=== PATIENT | female | born 1995 | race Caucasian/White ===

== ENCOUNTER 2017-11-26 13:27 | Observation (INO) ==
--- NOTE | 2017-11-26 14:21 | Emergency Department Note ---
Disposition Clinical Impression: Dyspnea on exertion, Pulmonary embolism Disposition: Still a Patient Referrals: Jayla Recio CNP [Primary Care Provider] - Jayla Morocho MD [Family Provider] - Forms: ED Satisfaction Letter Time of Disposition: 19:32 General Adult HPI - General Chief complaint: ED Extremity Problem,Nontraumatic Stated complaint: "Swollen all over" Time Seen by Provider: 11/26/17 13:52 Source: patient, family Limitations: no limitations - History of Present Illness HPI Narrative: This is a 22-year-old female with a recent diagnosis of pulmonary emboli and having been seen at both [facility] in [place] and also at [facility] in [place]. She reports worsening exercise tolerance over the course of the last 7-10 days. She is on rivaroxaban. She reports significant desaturation with minimal exertion. Pain Scale: 4 - Related Data Allergies Allergy/AdvReac Type Severity Reaction Status Date / Time No Known Allergies Allergy Verified 11/26/17 14:56 All systems ED: reviewed and negative except as stated. Cardiovascular: Reports: dyspnea on exertion, other (Very poor exercise tolerance) Past Medical History - Past Medical History Medical history: Reports: pulmonary embolus Psychiatric history: Reports: anxiety, depression - Social History Smoking Status: Never smoker Alcohol use: Reports: rarely Drug use: Reports: none Physical Exam - General Limitations: no limitations General appearance: alert, in no apparent distress - Head Head exam: atraumatic, normocephalic, normal inspection - Eye Eye exam: Present: normal appearance, PERRL, EOMI - Chest Chest inspection: Present: normal inspection, symmetric chest wall rise - Respiratory Respiratory exam: Present: normal lung sounds bilaterally - Cardiovascular Cardiovascular exam: Present: normal rhythm, tachycardia, normal heart sounds - Abdominal Exam Abdominal exam: Present: soft, Non-Tender. Absent: tenderness, distention, guarding, rebound, rigidity - Extremities Exam Extremities exam: Present: normal inspection, full ROM, pedal edema (There is trace bilateral pedal edema). Absent: tenderness - Neurological Exam Neurological exam: Present: alert, oriented X3 - Psychiatric Psychiatric exam: Present: normal affect, normal mood - Skin Skin exam: Present: warm, dry, intact, normal color Course Vital Signs Temperature 98.6 F 11/26/17 13:35 Pulse Rate 121 11/26/17 13:35 Respiratory Rate 20 11/26/17 13:35 Blood Pressure 117/74 11/26/17 13:35 O2 Sat by Pulse Oximetry 97 11/26/17 13:35 Temperature 98.6 F 11/26/17 13:47 Pulse Rate 108 11/26/17 17:12 Respiratory Rate 18 11/26/17 17:12 Blood Pressure 115/71 11/26/17 17:12 O2 Sat by Pulse Oximetry 100 11/26/17 17:12 Oxygen Delivery Oxygen Delivery Room Air Medical Decision Making - MDM Narrative Medical decision making narrative: This is a 22-year-old female with known pulmonary emboli significantly worsening exercise tolerance. I discussed her case with interventional cardiology here, and was told that they do not do catheter directed thrombolysis. A repeat CT pulmonary angiogram was ordered, and the units city secretary arranged for transmission of the previous CT angiogram from 11/06/2017 from [facility] [place]. This will allow the radiologist to make a direct comparison between CT angiograms. The patient was signed out to Dr. Joyce at 7:15 PM. I had already discussed with the patient and her family the possibility of transfer to a hospital that could perform a right heart catheterization and catheter directed thrombolysis. Although she has been at [facility] before, she reports a very positive experience at [facility] in [facility] and would prefer to be transferred there if possible and if needed. - Lab Data Lab results narrative: CBC shows anemia 10.3 and 31.1 with thrombocytosis of 519 BMP was unremarkable Troponin was low TSH was normal at 1.096 Result diagrams: 11/26/17 14:08 11/26/17 14:08 Lab Results 11/26/17 11/26/17 Range/Units 14:08 14:08 WBC 10.8 (4.3-11.1) K/mcL RBC 3.60 L (3.82-4.97) M/mcL Hgb 10.3 L (11.5-15.4) g/dL Hct 31.1 L (35.3-44.9) % MCV 86.4 (83.0-100.0) fL MCH 28.6 (28.0-33.3) pg MCHC 33.1 (31.6-35.5) g/dL RDW 12.8 (11.5-14.5) % Plt Count 519 H (140-400) K/mcL MPV 8.8 L (9.4-12.4) fL Immature Gran % 1.1 (0-4) % Seg Neutrophils % 69.3 % Lymphocytes % 23.0 % Monocytes % 4.7 % Eosinophils % 1.5 % Basophils % 0.4 % Neutrophils # 7.5 (1.6-8.9) K/mcL Lymphocytes # 2.5 (0.6-4.6) K/mcL Monocytes # 0.5 (0.0-1.3) K/mcL Eosinophils # 0.2 (0.0-0.6) K/mcL Basophils # 0.0 (0.0-0.2) K/mcL Platelet Estimate Normal (Normal) Anisocytosis 1+ A (Not Present) Sodium 137 (136-145) mEq/L Potassium 3.6 (3.5-5.1) mEq/L Chloride 101 (98-107) mEq/L Carbon Dioxide 29 (23-29) mEq/L BUN 10 (6-20) mg/dL Creatinine 0.61 (0.60-1.20) mg/dL Est GFR ( Amer) > 60 (> 60) Est GFR (Non-Af Amer) > 60 (> 60) BUN/Creatinine Ratio 16 (6-26) Glucose 115 H (70-105) mg/dL Calculated Osmolality 284 (280-300) Calcium 9.2 (8.6-10.3) mg/dL Troponin I < 0.03 (< 0.04) ng/mL TSH 1.096 (0.340-5.600) mcIU/mL - Radiology Data Radiology results reviewed: Yes I reviewed the patient's radiology results. Chest x-ray showed no acute process - EKG Data EKG #1 EKG attestation: Yes I reviewed and interpreted this EKG. EKG results narrative: ECG shows sinus tachycardia, 122 bpm, normal intervals, normal exam, normal ST and T waves
[2017-11-26 14:27] LABS: Basophils % 0.4 %; Eosinophils # 0.2 K/mcL (0.0-0.6); Eosinophils % 1.5 %; Hematocrit 31.1 % (35.3-44.9); Hemoglobin 10.3 g/dL (11.5-15.4); Immature Granulocytes % 1.1 % (0-4); Lymphocytes # 2.5 K/mcL (0.6-4.6); Mean Corpuscular HGB Conc 33.1 g/dL (31.6-35.5); Mean Corpuscular Hemoglobin 28.6 pg (28.0-33.3); Mean Corpuscular Volume 86.4 fL (83.0-100.0); Mean Platelet Volume 8.8 fL (9.4-12.4); Monocytes # 0.5 K/mcL (0.0-1.3); Monocytes % 4.7 %; Neutrophils # 7.5 K/mcL (1.6-8.9); Platelet Count 519 K/mcL (140-400); Red Cell Distribution Width 12.8 % (11.5-14.5); Segmented Neutrophils % 69.3 %
[2017-11-26 14:45] LABS: Troponin I < 0.03 ng/mL (< 0.04)
[2017-11-26 14:57] LABS: BUN/Creatinine Ratio 16 (6-26); Blood Urea Nitrogen 10 mg/dL (6-20); Calcium 9.2 mg/dL (8.6-10.3); Carbon Dioxide 29 mEq/L (23-29); Chloride 101 mEq/L (98-107); Glucose 115 mg/dL (70-105); Osmolality,Calculated 284 (280-300); Potassium 3.6 mEq/L (3.5-5.1); Sodium 137 mEq/L (136-145); eGFR For Non-African Americans > 60 (> 60)
[2017-11-26 14:58] LABS: Thyroid Stimulating Hormone 1.096 mcIU/mL (0.340-5.600)
[2017-11-26 15:33] LABS: Anisocytosis 1+ (Not Present); Platelet Estimate Normal (Normal)
[2017-11-26] MEDS ORDERED: Isovue-370 500 ML INFUS..BTL IV ONE (16:05)
[2017-11-26] MEDS ORDERED: *HR* FentaNYL (PF) 100 MCG/2 ML VIAL IVP ONE (17:12)
[2017-11-26] MEDS ORDERED: *HR* OxyCODONE/APAP 5/325 TABLET PO STA (20:28)
[2017-11-26] MEDS ORDERED: 0.9 % Sodium Chloride 1,000 ML IVC ONE ×2 (20:29→21:59)
[2017-11-26 20:55] LABS: Bilirubin,Urine Negative (Negative); Blood,Urine Negative (Negative); Clarity,Urine Cloudy (Clear); Color,Urine Yellow (Yellow); Glucose,Urine (UA) Normal (Normal); Ketones,Urine Negative (Negative); Leukocyte Esterase,Urine Trace (Negative); Nitrite,Urine Negative (Negative); PH,Urine 6.5 pH Units (5.0-8.0); Protein,Urine Negative (Neg-Trace); Specific Gravity,Urine 1.017 (1.010-1.025); Urobilinogen,Urine Normal (Normal)
[2017-11-26 20:57] LABS: Bacteria,Urine Moderate per hpf (None-Few); Hyaline Casts,Urine None Seen per lpf (None-Few); RBC,Urine 0-3 per hpf (0-3); Squamous Epithelial Cell,Urine Many per lpf (None-Few)
--- NOTE | 2017-11-26 21:45 | Emergency Department Note ---
Disposition Clinical Impression: Dyspnea on exertion, Abscess Cellulitis Qualifiers: Site of cellulitis: extremity Site of cellulitis of extremity: axilla Laterality: right Qualified Code(s): L03.111 - Cellulitis of right axilla Sepsis Qualifiers: Sepsis type: sepsis due to unspecified organism Qualified Code(s): A41.9 - Sepsis, unspecified organism Disposition: Admitted As Inpatient Condition: Fair General Adult HPI - General Chief complaint: ED Extremity Problem,Nontraumatic Stated complaint: "Swollen all over" Time Seen by Provider: 11/26/17 13:52 Source: patient, family Limitations: no limitations Nursing Notes Reviewed: Yes Vital Signs Reviewed: Yes - History of Present Illness HPI Narrative: Patient signed out by the team. Please see their note for further. Pain Scale: 4 - Related Data Home Medications Medication Instructions Recorded Confirmed Acetaminophen [Tylenol Arthritis] 650 mg PO Q8H PRN 11/26/17 11/26/17 BuPROPion XL (24 HR) [Wellbutrin 150 mg PO HS 11/26/17 11/26/17 XL] Duloxetine HCl [Cymbalta] 60 mg PO HS 11/26/17 11/26/17 Mercaptopurine [Purinethol] 25 mg PO HS 11/26/17 11/26/17 Rivaroxaban [Xarelto] 15 mg PO BID 11/26/17 11/26/17 predniSONE [PredniSONE] 10 mg PO HS 11/26/17 11/26/17 Allergies Allergy/AdvReac Type Severity Reaction Status Date / Time No Known Allergies Allergy Verified 11/26/17 21:58 All systems ED: reviewed and negative except as stated. Review of Systems: As Per HPI Constitutional: Reports: fever. Denies: chills ENT ED: Denies: congestion Cardiovascular: Reports: dyspnea on exertion, other (Very poor exercise tolerance). Denies: chest pain, syncope Respiratory: Denies: cough Gastrointestinal: Denies: abdominal pain, nausea, vomiting, diarrhea Genitourinary: Reports: other (Dark urine). Denies: urgency, dysuria Musculoskeletal: Reports: other (Swelling to her right hand left hand right foot and left foot.) Integumentary: Reports: other (Abscess to the right brachial area.). Denies: rash Past Medical History - Past Medical History Attestation: Yes The following information was validated with the patient. Source: patient Medical history: Reports: pulmonary embolus Psychiatric history: Reports: anxiety, depression - Social History Smoking Status: Never smoker Alcohol use: Reports: rarely Drug use: Reports: none Physical Exam - General Limitations: no limitations General appearance: alert, in no apparent distress - Head Head exam: atraumatic, normocephalic, normal inspection - Eye Eye exam: Present: normal appearance, PERRL, EOMI - ENT ENT exam: normal exam, normal oropharynx, mucous membranes moist - Neck Neck exam: Present: normal inspection, full ROM, trachea midline - Chest Chest inspection: Present: normal inspection, symmetric chest wall rise. Absent : tenderness, abscess - Respiratory Respiratory exam: Present: normal lung sounds bilaterally. Absent: respiratory distress, accessory muscle use - Cardiovascular Cardiovascular exam: Present: normal rhythm, tachycardia, normal heart sounds - Abdominal Exam Abdominal exam: Present: soft, Non-Tender. Absent: distention, guarding, rigidity, organomegaly - Extremities Exam Extremities exam: Present: full ROM, tenderness (To palpation of bilateral hands and bilateral feet.), other (Pitting edema to bilateral hands and bilateral feet. Does not extend of her tibias. Large abscess that is warm and erythematous to right brachial area. Strong pulses in all 4 extremities.) - Back Exam Back exam: Present: normal inspection, full ROM. Absent: tenderness - Neurological Exam Neurological exam: Present: alert, oriented X3 - Psychiatric Psychiatric exam: Present: normal affect, normal mood - Skin Skin exam: Present: warm, dry, intact, normal color, other (Warm erythematous palpable abscess to the right brachial area. Patient's compartments are soft however.). Absent: rash, cyanosis, diaphoresis Course Course Narrative: Patient CT shows no signs of a PE. However patient is febrile and tachycardic. She does meet sepsis criteria. We did place patient on vancomycin and Zosyn. We did give her 2 L fluid bolus. Patient does have tacky membranes and states that she has been drinking plenty of fluids however her urine is dark in color. Her CK was normal. We will start patient on vancomycin and cefepime and admitted to the hospital for possible drainage of this right abscess to her arm. Eyes any history of IV drug use. Vital Signs Temperature 98.6 F 11/26/17 13:35 Pulse Rate 121 11/26/17 13:35 Respiratory Rate 20 11/26/17 13:35 Blood Pressure 117/74 11/26/17 13:35 O2 Sat by Pulse Oximetry 97 11/26/17 13:35 Temperature 98.8 F 11/26/17 22:57 Pulse Rate 122 11/26/17 22:03 Respiratory Rate 18 11/26/17 22:03 Blood Pressure 126/79 11/26/17 22:03 O2 Sat by Pulse Oximetry 99 11/26/17 22:03 Oxygen Delivery Oxygen Delivery Room Air Medical Decision Making - Medical Records Medical records reviewed: Yes I reviewed the patient's medical records. - Lab Data Lab results reviewed: Yes I reviewed the patient's lab results. Result diagrams: 11/26/17 14:08 11/26/17 14:08 Lab Results 11/26/17 11/26/17 11/26/17 Range/Units 14:08 14:08 20:45 WBC 10.8 (4.3-11.1) K/mcL RBC 3.60 L (3.82-4.97) M/mcL Hgb 10.3 L (11.5-15.4) g/dL Hct 31.1 L (35.3-44.9) % MCV 86.4 (83.0-100.0) fL MCH 28.6 (28.0-33.3) pg MCHC 33.1 (31.6-35.5) g/dL RDW 12.8 (11.5-14.5) % Plt Count 519 H (140-400) K/mcL MPV 8.8 L (9.4-12.4) fL Immature Gran % 1.1 (0-4) % Seg Neutrophils % 69.3 % Lymphocytes % 23.0 % Monocytes % 4.7 % Eosinophils % 1.5 % Basophils % 0.4 % Neutrophils # 7.5 (1.6-8.9) K/mcL Lymphocytes # 2.5 (0.6-4.6) K/mcL Monocytes # 0.5 (0.0-1.3) K/mcL Eosinophils # 0.2 (0.0-0.6) K/mcL Basophils # 0.0 (0.0-0.2) K/mcL Platelet Estimate Normal (Normal) Anisocytosis 1+ A (Not Present) Sodium 137 (136-145) mEq/L Potassium 3.6 (3.5-5.1) mEq/L Chloride 101 (98-107) mEq/L Carbon Dioxide 29 (23-29) mEq/L BUN 10 (6-20) mg/dL Creatinine 0.61 (0.60-1.20) mg/dL Est GFR ( Amer) > 60 (> 60) Est GFR (Non-Af Amer) > 60 (> 60) BUN/Creatinine Ratio 16 (6-26) Glucose 115 H (70-105) mg/dL Calculated Osmolality 284 (280-300) Lactic Acid (0.5-2.2) mmol/L Calcium 9.2 (8.6-10.3) mg/dL Creatine Kinase (30-223) Units/L Troponin I < 0.03 (< 0.04) ng/mL TSH 1.096 (0.340-5.600) mcIU/mL Urine Color Yellow (Yellow) Urine Clarity Cloudy A (Clear) Urine pH 6.5 (5.0-8.0) pH Units Ur Specific [place] 1.017 (1.010-1.025) Urine Protein Negative (Neg-Trace) mg/dL Urine Glucose (UA) Normal (Normal) mg/dL Urine Ketones Negative (Negative) mg/dL Urine Blood Negative (Negative) Urine Nitrite Negative (Negative) Urine Bilirubin Negative (Negative) Urine Urobilinogen Normal (Normal) mg/dL Ur Leukocyte Esterase Trace H (Negative) Urine Microscopic RBC 0-3 (0-3) per hpf Urine Microscopic WBC 5-15 H (0-3) per hpf Ur Squamous Epith Cells Many H (None-Few) per lpf Urine Bacteria Moderate H (None-Few) per hpf Hyaline Casts None Seen (None-Few) per lpf Ur Culture Indicated? NO. A (NO) Urine Test (Negative) 11/26/17 11/26/17 11/26/17 Range/Units 20:45 21:06 21:06 WBC (4.3-11.1) K/mcL RBC (3.82-4.97) M/mcL Hgb (11.5-15.4) g/dL Hct (35.3-44.9) % MCV (83.0-100.0) fL MCH (28.0-33.3) pg MCHC (31.6-35.5) g/dL RDW (11.5-14.5) % Plt Count (140-400) K/mcL MPV (9.4-12.4) fL Immature Gran % (0-4) % Seg Neutrophils % % Lymphocytes % % Monocytes % % Eosinophils % % Basophils % % Neutrophils # (1.6-8.9) K/mcL Lymphocytes # (0.6-4.6) K/mcL Monocytes # (0.0-1.3) K/mcL Eosinophils # (0.0-0.6) K/mcL Basophils # (0.0-0.2) K/mcL Platelet Estimate (Normal) Anisocytosis (Not Present) Sodium (136-145) mEq/L Potassium (3.5-5.1) mEq/L Chloride (98-107) mEq/L Carbon Dioxide (23-29) mEq/L BUN (6-20) mg/dL Creatinine (0.60-1.20) mg/dL Est GFR ( Amer) (> 60) Est GFR (Non-Af Amer) (> 60) BUN/Creatinine Ratio (6-26) Glucose (70-105) mg/dL Calculated Osmolality (280-300) Lactic Acid 0.8 (0.5-2.2) mmol/L Calcium (8.6-10.3) mg/dL Creatine Kinase < 10 L (30-223) Units/L Troponin I (< 0.04) ng/mL TSH (0.340-5.600) mcIU/mL Urine Color (Yellow) Urine Clarity (Clear) Urine pH (5.0-8.0) pH Units Ur Specific [place] (1.010-1.025) Urine Protein (Neg-Trace) mg/dL Urine Glucose (UA) (Normal) mg/dL Urine Ketones (Negative) mg/dL Urine Blood (Negative) Urine Nitrite (Negative) Urine Bilirubin (Negative) Urine Urobilinogen (Normal) mg/dL Ur Leukocyte Esterase (Negative) Urine Microscopic RBC (0-3) per hpf Urine Microscopic WBC (0-3) per hpf Ur Squamous Epith Cells (None-Few) per lpf Urine Bacteria (None-Few) per hpf Hyaline Casts (None-Few) per lpf Ur Culture Indicated? (NO) Urine Test Negative (Negative) - Radiology Data Radiology results reviewed: Yes I reviewed the patient's radiology results. Chest X-Ray 11/26/17 14:07 IMPRESSION: No acute cardiopulmonary pathology. D/ / Layo Briggs MD / Layo Briggs MD Interpreting Provider: Layo Briggs MD Chest CTA 11/26/17 16:05 IMPRESSION: 1. No pulmonary emboli visualized. No evidence of right heart strain. No other acute pulmonary abnormality seen. 2. 4.5 cm irregular fluid collection with adjacent inflammatory changes along the right axilla, which extends to the dermis. Findings are most suspicious for abscess or subacute hematoma. D/ / 11/26/2017 17:59:55 Shashank Knight MD / elen Interpreting Provider: Shashank Knight MD
[2017-11-26] MEDS ORDERED: Acetaminophen 325 MG TABLET PO ONE (22:02)
--- NOTE | 2017-11-26 22:32 | Emergency Department Note ---
Disposition Clinical Impression: Dyspnea on exertion, Abscess Cellulitis Qualifiers: Site of cellulitis: extremity Site of cellulitis of extremity: axilla Laterality: right Qualified Code(s): L03.111 - Cellulitis of right axilla Disposition: Admitted As Inpatient Condition: Fair Referrals: Jayla Morocho MD [Family Provider] - Jayla Recio CNP [Primary Care Provider] - Forms: ED Satisfaction Letter General Adult HPI - General Chief complaint: ED Extremity Problem,Nontraumatic Stated complaint: "Swollen all over" Time Seen by Provider: 11/26/17 13:52 Source: patient, family Limitations: no limitations Nursing Notes Reviewed: Yes Vital Signs Reviewed: Yes - History of Present Illness Pain Scale: 4 - Related Data Home Medications Medication Instructions Recorded Confirmed Acetaminophen [Tylenol Arthritis] 650 mg PO Q8H PRN 11/26/17 11/26/17 BuPROPion XL (24 HR) [Wellbutrin 150 mg PO HS 11/26/17 11/26/17 XL] Duloxetine HCl [Cymbalta] 60 mg PO HS 11/26/17 11/26/17 Mercaptopurine [Purinethol] 25 mg PO HS 11/26/17 11/26/17 Rivaroxaban [Xarelto] 15 mg PO BID 11/26/17 11/26/17 predniSONE [PredniSONE] 10 mg PO HS 11/26/17 11/26/17 Allergies Allergy/AdvReac Type Severity Reaction Status Date / Time No Known Allergies Allergy Verified 11/26/17 21:58 Cardiovascular: Reports: dyspnea on exertion, other (Very poor exercise tolerance) Past Medical History - Past Medical History Medical history: Reports: pulmonary embolus Psychiatric history: Reports: anxiety, depression - Social History Smoking Status: Never smoker Alcohol use: Reports: rarely Drug use: Reports: none Physical Exam - General Limitations: no limitations General appearance: alert, in no apparent distress Course Vital Signs Temperature 98.6 F 11/26/17 13:35 Pulse Rate 121 11/26/17 13:35 Respiratory Rate 20 11/26/17 13:35 Blood Pressure 117/74 11/26/17 13:35 O2 Sat by Pulse Oximetry 97 11/26/17 13:35 Temperature 101.1 F H 11/26/17 22:03 Pulse Rate 122 11/26/17 22:03 Respiratory Rate 18 11/26/17 22:03 Blood Pressure 126/79 11/26/17 22:03 O2 Sat by Pulse Oximetry 99 11/26/17 22:03 Oxygen Delivery Oxygen Delivery Room Air Medical Decision Making - Medical Records Medical records reviewed: Yes I reviewed the patient's medical records. - Lab Data Lab results reviewed: Yes I reviewed the patient's lab results. Result diagrams: 11/26/17 14:08 11/26/17 14:08 Lab Results 11/26/17 11/26/17 11/26/17 Range/Units 14:08 14:08 20:45 WBC 10.8 (4.3-11.1) K/mcL RBC 3.60 L (3.82-4.97) M/mcL Hgb 10.3 L (11.5-15.4) g/dL Hct 31.1 L (35.3-44.9) % MCV 86.4 (83.0-100.0) fL MCH 28.6 (28.0-33.3) pg MCHC 33.1 (31.6-35.5) g/dL RDW 12.8 (11.5-14.5) % Plt Count 519 H (140-400) K/mcL MPV 8.8 L (9.4-12.4) fL Immature Gran % 1.1 (0-4) % Seg Neutrophils % 69.3 % Lymphocytes % 23.0 % Monocytes % 4.7 % Eosinophils % 1.5 % Basophils % 0.4 % Neutrophils # 7.5 (1.6-8.9) K/mcL Lymphocytes # 2.5 (0.6-4.6) K/mcL Monocytes # 0.5 (0.0-1.3) K/mcL Eosinophils # 0.2 (0.0-0.6) K/mcL Basophils # 0.0 (0.0-0.2) K/mcL Platelet Estimate Normal (Normal) Anisocytosis 1+ A (Not Present) Sodium 137 (136-145) mEq/L Potassium 3.6 (3.5-5.1) mEq/L Chloride 101 (98-107) mEq/L Carbon Dioxide 29 (23-29) mEq/L BUN 10 (6-20) mg/dL Creatinine 0.61 (0.60-1.20) mg/dL Est GFR ( Amer) > 60 (> 60) Est GFR (Non-Af Amer) > 60 (> 60) BUN/Creatinine Ratio 16 (6-26) Glucose 115 H (70-105) mg/dL Calculated Osmolality 284 (280-300) Lactic Acid (0.5-2.2) mmol/L Calcium 9.2 (8.6-10.3) mg/dL Creatine Kinase (30-223) Units/L Troponin I < 0.03 (< 0.04) ng/mL TSH 1.096 (0.340-5.600) mcIU/mL Urine Color Yellow (Yellow) Urine Clarity Cloudy A (Clear) Urine pH 6.5 (5.0-8.0) pH Units Ur Specific Addy 1.017 (1.010-1.025) Urine Protein Negative (Neg-Trace) mg/dL Urine Glucose (UA) Normal (Normal) mg/dL Urine Ketones Negative (Negative) mg/dL Urine Blood Negative (Negative) Urine Nitrite Negative (Negative) Urine Bilirubin Negative (Negative) Urine Urobilinogen Normal (Normal) mg/dL Ur Leukocyte Esterase Trace H (Negative) Urine Microscopic RBC 0-3 (0-3) per hpf Urine Microscopic WBC 5-15 H (0-3) per hpf Ur Squamous Epith Cells Many H (None-Few) per lpf Urine Bacteria Moderate H (None-Few) per hpf Hyaline Casts None Seen (None-Few) per lpf Ur Culture Indicated? NO. A (NO) Urine Test (Negative) 11/26/17 11/26/17 11/26/17 Range/Units 20:45 21:06 21:06 WBC (4.3-11.1) K/mcL RBC (3.82-4.97) M/mcL Hgb (11.5-15.4) g/dL Hct (35.3-44.9) % MCV (83.0-100.0) fL MCH (28.0-33.3) pg MCHC (31.6-35.5) g/dL RDW (11.5-14.5) % Plt Count (140-400) K/mcL MPV (9.4-12.4) fL Immature Gran % (0-4) % Seg Neutrophils % % Lymphocytes % % Monocytes % % Eosinophils % % Basophils % % Neutrophils # (1.6-8.9) K/mcL Lymphocytes # (0.6-4.6) K/mcL Monocytes # (0.0-1.3) K/mcL Eosinophils # (0.0-0.6) K/mcL Basophils # (0.0-0.2) K/mcL Platelet Estimate (Normal) Anisocytosis (Not Present) Sodium (136-145) mEq/L Potassium (3.5-5.1) mEq/L Chloride (98-107) mEq/L Carbon Dioxide (23-29) mEq/L BUN (6-20) mg/dL Creatinine (0.60-1.20) mg/dL Est GFR ( Amer) (> 60) Est GFR (Non-Af Amer) (> 60) BUN/Creatinine Ratio (6-26) Glucose (70-105) mg/dL Calculated Osmolality (280-300) Lactic Acid 0.8 (0.5-2.2) mmol/L Calcium (8.6-10.3) mg/dL Creatine Kinase < 10 L (30-223) Units/L Troponin I (< 0.04) ng/mL TSH (0.340-5.600) mcIU/mL Urine Color (Yellow) Urine Clarity (Clear) Urine pH (5.0-8.0) pH Units Ur Specific Addy (1.010-1.025) Urine Protein (Neg-Trace) mg/dL Urine Glucose (UA) (Normal) mg/dL Urine Ketones (Negative) mg/dL Urine Blood (Negative) Urine Nitrite (Negative) Urine Bilirubin (Negative) Urine Urobilinogen (Normal) mg/dL Ur Leukocyte Esterase (Negative) Urine Microscopic RBC (0-3) per hpf Urine Microscopic WBC (0-3) per hpf Ur Squamous Epith Cells (None-Few) per lpf Urine Bacteria (None-Few) per hpf Hyaline Casts (None-Few) per lpf Ur Culture Indicated? (NO) Urine Test Negative (Negative) - Radiology Data Radiology results reviewed: Yes I reviewed the patient's radiology results. Chest X-Ray 11/26/17 14:07 IMPRESSION: No acute cardiopulmonary pathology. D/ / Layo Briggs MD / Layo Briggs MD Interpreting Provider: Layo Briggs MD Chest CTA 11/26/17 16:05 IMPRESSION: 1. No pulmonary emboli visualized. No evidence of right heart strain. No other acute pulmonary abnormality seen. 2. 4.5 cm irregular fluid collection with adjacent inflammatory changes along the right axilla, which extends to the dermis. Findings are most suspicious for abscess or subacute hematoma. D/ / 11/26/2017 17:59:55 Shashank Knight MD / elen Interpreting Provider: Shashank Knight MD Critical Care Time Critical Care Time: Yes Total Critical Care Time: 50 Attestation: Critical care performed: Time is exclusive of separately billable procedures. Time includes: direct patient care, patient reassessment, coordination of patient care, interpretation of data (laboratory data, radiology data, and respiratory data), review of patient's medical records, medical consultation and documentation of patient care. Procedures included in critical care time: Procedures excluded from critical care time: Attestation Statement - Attestation Attestation: IMarcel MD, personally evaluated this patient and discussed their management with the resident physician. I reviewed the resident's note and agree with the documented findings, medical decision making, and plan of care. This patient was signed out at shift change from Dr. herrera. Please refer to his note for complete details of history and physical examination. Patient is a 22- year-old female who was diagnosed approximately 3 weeks ago with pulmonary emboli. At that time she presented with a fever of 103.8 and was very tachycardic. She was admitted to the CCU at another facility. Patient was discharged on anticoagulants. After discharge her symptoms then worsened and she was readmitted and transferred to [facility] in [place]. She has received several rounds of IV antibiotics. She presented tonight complaining of increasing generalized edema which has been present since onset of the symptoms 3 weeks ago but is been worse the past few days. Persistent shortness of breath with exertion as well as tachycardia with any exertion. At shift change patient is awaiting a repeat CTA of the lungs. Patient also complains of a tender swelling in the right axilla and upper arm. Patient reports this has been present since onset of her symptoms and seems to be getting progressively worse. She also just remembered that prior to onset of the swelling in the right axillary region that she had a skin biopsy of that area sometime back in September. On examination patient is a well-developed well-nourished well-appearing young female in no acute distress. She is alert and oriented 3. There is no cyanosis or diaphoresis. Breath sounds are clear and equal bilaterally. Heart regular with a moderate tachycardia. Abdomen soft and nontender with normal bowel sounds. There is moderate swelling of the right upper arm and axillary area with erythema and discoloration and warmth to touch. There is a large area of induration with mild fluctuance. Patient reports this has been present since onset of her symptoms and seems to be getting progressively worse. She also just remembered that prior to onset of the swelling in the right axillary region that she had a skin biopsy of that area sometime back in September. Labs reviewed. Repeat CTA tonight showed no evidence of pulmonary embolism. It did show a fluid collection in the right axilla consistent with an abscess or hematoma. The hospitalist, Dr. Sapp, was consulted and accepted admission of the patient.
[2017-11-26] MEDS ORDERED: Cefepime HCl 1,000 MG in Water for inj. (sterile) 20 ML 10 ML IVP ONE (23:00)
--- NOTE | 2017-11-27 04:15 | Internal Med History&Physical ---
Date of Encounter: 11/27/17 Time of Encounter: 04:15 Internal Medicine - H&P: HPI Chief complaint: palpitation and sob with exertion History of present illness: Ms. Al is a 22 year old female with past medical history of Crohn's disease for 4 years, recently diagnosed PE E both weeks ago and depression came in with complaint of shortness of breath on exertion and palpitation. Patient was diagnosed with PE about 3 weeks ago. She had another 2 ER visits for rapid heart rate and was given IV antibiotics. According to her on the test came out negative. She also has a history of axillary biopsy taken for diagnoses of psoriasis in September. She has increased swelling redness and pain at the location where she had biopsies. She was also told her platelets were high last week in the ER. She recently has been started on prednisone by her vet assistant for her joint pain. She had cardiac workup done which was reportedly negative. CTA was obtained in the ER which was negative for PE. There was 4.5 cm irregular fluid collection in the right axilla which was suspicion of abscess versus hematoma. She had signs and symptoms of sepsis. She received 2 L of fluids in ER. She received vancomycin and cefepime in the ER. Admission was requested for sepsis. She denies any diarrhea, cough, chest pain or any skin rash. She has joint pain in her hands and knees and foot. Denies any sore throat. Past Med Surg Social Fam HX - Past Medical History Medical history: pulmonary embolus Additional medical history: crohns disease Psychiatric history: anxiety, depression - Social History Smoking Status: Never smoker Smokeless Tobacco Status: No Alcohol use: rarely Drug use: none Internal Medicine - H&P: Meds Acetaminophen [Tylenol Arthritis] 650 mg PO Q8H PRN 11/26/17 [History] BuPROPion XL (24 HR) [Wellbutrin XL] 150 mg PO HS 11/26/17 [History] Duloxetine HCl [Cymbalta] 60 mg PO HS 11/26/17 [History] Mercaptopurine [Purinethol] 25 mg PO HS 11/26/17 [History] Rivaroxaban [Xarelto] 15 mg PO BID 11/26/17 [History] predniSONE [PredniSONE] 10 mg PO HS 11/26/17 [History] 3 Allergy/AdvReac Type Severity Reaction Status Date / Time No Known Allergies Allergy Verified 11/26/17 21:58 All Systems PM: A 10-system review of systems was performed and is negative for pertinent findings except as documented above in the HPI. - Constitutional Vitals: Temp Pulse Resp BP Pulse Ox 98.9 F 126 16 103/54 97 11/26/17 23:35 11/26/17 23:35 11/26/17 23:35 11/26/17 23:35 11/26/17 23:35 General appearance: Present: A&O X 3, pleasant, no acute distress Exam: Const: Vital signs listed above. Well developed, well nourished and in no acute distress. Alert and oriented Xs 3. No mood disorders noted, calm affect. Eyes: Sclera white, conjunctiva clear, lids are without lag. PERRLA. Pupils and irises are equal and round without defect. ENT: TMs intact and clear, normal canals, grossly normal hearing. Oropharanx clear and moist without erythema. Gums pink, good dentition. Lymph/Neck: No masses, thyromegaly, or abnormal cervical notes. No bruit. Tracheal midline. Cardio: Tachycardic, Normal S1, S2 w/o murmurs, rubs or gallops. Skin warm and dry. No peripheral edema. Respiratory: Chest symmetrical, respirations non-labored. No dullness or flatness. Clear bilaterally to auscultation, non-tender to palpitation. Musculo: No deformity or scoliosis noted. No coco gait disturbance noted. No cyanosis or edema. Pulses normal in all 4 extremities. No atrophy or abnormal movements. Appropriate muscle strength bilaterally. Neurologic: No focal deficits, cranial nerves II-XII grossly intact with normal sensation, reflexes, coordination, muscle strength and tone. GI/Abdomen: Soft, non tender, non distended, no hepatosplemomegaly, normal bowel sounds, no masses noted. SKin: 4x5 cm tender and red swelling in Rt axilla noted. No other skin rash. Internal Med - H&P Results - Labs CBC & Chem 7: 11/26/17 14:08 11/26/17 14:08 - Assessment and plan (1) Sepsis Current Visit: Yes Status: Acute Assessment and plan: Patient has signs and symptoms of sepsis likely secondary to axillary abscess - Patient got 2 L of fluids in the ER. We will continue normal saline at 1 25 mL an hour. - Follow up blood cultures - Patient would need drainage of her abscess. Would call surgery in the morning - Continue vancomycin and cefepime given her recent antibiotic usage. We will taper based on culture and sensitivity. - We will consider infectious disease consultation given her history of Crohn's being on mercaptopurine and Remicade and prednisone for antibiotic guidance Qualifiers: Sepsis type: sepsis due to unspecified organism Qualified Code(s): A41.9 - Sepsis, unspecified organism (2) Crohn disease Current Visit: Yes Status: Acute Assessment and plan: Continue home mercaptopurine. Qualifiers: Qualified Code(s): K50.90 - Crohn's disease, unspecified, without complications (3) Depression Current Visit: Yes Status: Acute Assessment and plan: Continue home Wellbutrin and duloxetine Qualifiers: Qualified Code(s): F32.9 - Major depressive disorder, single episode, unspecified (4) Abscess Current Visit: Yes Status: Acute Assessment and plan: As above (5) Cellulitis Current Visit: Yes Status: Acute Assessment and plan: As above Qualifiers: Site of cellulitis: extremity Site of cellulitis of extremity: axilla Laterality: right Qualified Code(s): L03.111 - Cellulitis of right axilla (6) Dyspnea on exertion Current Visit: Yes Status: Acute (7) History of pulmonary embolism Current Visit: Yes Status: Acute Assessment and plan: CTA study negative today. - We will continue xarelto given recent history of PE hence being high risk. - Has thrombocytosis. Could be reactive. However will consider hematology if not resolving with treatment of sepsis - We will discuss with surgery regarding abscess drainage while on anticoagulation given her recent PE (8) DVT prophylaxis Current Visit: Yes Status: Acute Assessment and plan: On anticoagulation - Time Spent With Patient Total time spent is greater than 50% in coordination of care (as documented) at patient's floor/unit and/or counseling patient:
[2017-11-27] MEDS ORDERED: Naloxone 0.4 MG/ML INJ IVP PRN (04:22)
[2017-11-27] MEDS ORDERED: 0.9 % Sodium Chloride 1,000 ML IVC SCH (05:00)
--- NOTE | 2017-11-27 07:44 | Electrocardiograph Report ---
[place] [id number] Test Date: 2017-11-26 Pat Name: Rita Al Department: [id number] Room: 3A42 Gender: F [employer]: : 1995 Requested By: Mian Alonzo Order Number: [id number] Reading MD: Juan F Chino Measurements Intervals [place] Rate: 122 P: 32 NH: 134 QRS: 27 QRSD: 91 T: 32 QT: 305 QTc: 435 Interpretive Statements Sinus tachycardia RSR' in V1 or V2, probably normal variant Electronically Signed On 11-27-2017 7:43:25 EDT by Juan F Chino
[2017-11-27] MEDS: Cefepime HCl 2,000 MG in Water for inj. (sterile) 20 ML 20 ML IVP SCH ×2 (09:47→23:48)
[2017-11-27] MEDS: *HR* Rivaroxaban 15 MG TABLET PO SCH ×2 (09:48→20:37)
[2017-11-27] MEDS: Acetaminophen 325 MG TABLET PO PRN ×2 (10:22→18:13)
[2017-11-27] MEDS ORDERED: *HR* Metoprolol 5 MG/5 ML VIAL IVP ONE (11:21)
[2017-11-27] MEDS ORDERED: *HR* LORazepam 2 MG/ML VIAL IVP ONE (11:21)
--- NOTE | 2017-11-27 12:50 | Rheumatology Consult Note ---
Date of Encounter: 11/27/17 Time of Encounter: 12:40 Rheumatology Assess and Plan (1) Inflammatory arthritis Current Visit: Yes Status: Acute Patient with diffuse tenosynovitis of hands and feet. She has known Crohns, psoriasis so this could be a manifestation of a spondyloarthropathy though due to its rapid onset may need to consider a reactive arthritis from infection, parvovirus or a drug induced arthritis/lupus from Remicade use. - She currently has an abscess, on antibiotic coverage and surgery pending; though I did speak with Dr. Fabian and not sure that all of her symptoms are related to the abscess and possibly this inflammatory response is more contributory. I would give solu-medrol 60 mg IV x 1 and tomorrow can transition to prednisone 40 mg for a week and then taper. - Will follow-up with labs and she is ok following up with her current superintendent logging, Dr. Arnold. (2) On prednisone therapy Current Visit: Yes Status: Acute Given use of prednisone with anticoagulation, recommend GI prophylaxis with PPI in the short term till dose is decreased. (3) Sepsis Current Visit: Yes Status: Acute On antibiotics, vitals improving and managed by medicine physician. Qualifiers: Sepsis type: sepsis due to unspecified organism Qualified Code(s): A41.9 - Sepsis, unspecified organism (4) Crohn disease Current Visit: Yes Status: Acute Reports good control on current therapy, suspicion for related arthritis. Qualifiers: Gastrointestinal tract location: unspecified location Digestive disease complication type: unspecified complication Qualified Code(s): K50.919 - Crohn 's disease, unspecified, with unspecified complications Discussion w patient/family: Discussed the plan with the patient and her parents at bedside, questions answered. Discussed the results of the consult and plans with Dr. Fabian. Rheumatology HPI Consult date: 11/27/17 Requesting physician: Gt Fabian Consult reason: Arthritis Chief complaint: Hand and foot pain History of present illness: Ms. Al is a 22 year old female with PMH of Crohn's disease, pulmonary embolism, psoriasis, depression who presents to [facility] with shortness of breath, hand and feet swelling. Rita reports she was diagnosed with Crohns in 2013. She is managed by a electrical subcontractor at [facility] in which she is on mercaptopurine and Remicade every 4 weeks. She reports good control of her disease. She reports a diagnosis of plaque psoriasis. Three weeks ago, reports shortness of breath and was diagnosed with a pulmonary embolism which she is now treated with Xarelto. About 2-3 weeks ago she started having pain and swelling in her bilateral hands and feet. The pain is sharp, constant and associated with diffuse swelling. She reports that nothing has made this better. She was evaluated by Dr. Arnold at [facility] and was started on prednisone 10 mg and bloodwork was ordered. She denies any response to this dose of prednisone. She has taken NSAIDS which has helped. She denies sick contacts, red or painful eye, photosensitive rashes, chest pain , pleuritic chest pain, abdominal pain, hematochezia or melena. Past Med Surg Social Fam HX - Past Medical History Medical history: pulmonary embolus Additional medical history: crohns disease Psychiatric history: anxiety, depression - Social History Smoking Status: Never smoker Smokeless Tobacco Status: No Alcohol use: rarely Drug use: none Medications and Allergies Acetaminophen [Tylenol Arthritis] 650 mg PO Q8H PRN 11/26/17 [History] BuPROPion XL (24 HR) [Wellbutrin XL] 150 mg PO HS 11/26/17 [History] Duloxetine HCl [Cymbalta] 60 mg PO HS 11/26/17 [History] Mercaptopurine [Purinethol] 25 mg PO HS 11/26/17 [History] Rivaroxaban [Xarelto] 15 mg PO BID 11/26/17 [History] predniSONE [PredniSONE] 10 mg PO HS 11/26/17 [History] 3 Allergy/AdvReac Type Severity Reaction Status Date / Time No Known Allergies Allergy Verified 11/26/17 21:58 All Systems Review: General - no recent weight loss, weight gain, + fatigue or + fevers Eyes - no redness, loss of vision, dryness/itching/foreign body sensation ENT - no dryness of mouth, oral ulcerations, nasal ulcerations, sore throat, Cardiovascular - no chest pain, palpitations, lightheadedness, syncope or arm/ leg claudication Respiratory - + mild shortness of breath with exertion since PE, denies difficulty breathing at night, pleuritic chest pain and no cough Gastrointestinal - no nausea, vomiting, diarrhea, bloating, black/tarry stools, blood in stools or heartburn Genitourinary - no pain on urination, hematuria, frothy urine or ulcerations. Musculoskeletal - + morning stiffness, + joint swelling, no muscle aches, tendon /ligament swelling or tenderness and no inflammatory back pain Integumentary - no easy bruising, rashes, hives, photosensitivity, skin thickening, alopecia, color changes of hands. N Neurological - no muscle weakness or paresthesias Hematologic/lymphatic - no tender or swollen glands, history of anemia or blood clots Rheumatology Exam Vital Signs, Last 4 Hours Temp Pulse Resp BP Pulse Ox 11/27/17 10:46 99.1 F 137 14 110/55 94 Exam: General - Alert and oriented x 3, no acute distress and appears comfortable HEENT - Conjunctiva clear, no alopecia or hair thinning, no facial rash, no nasal or oral mucosal lesions/ulcerations Heme/Lymph - No cervical or supraclavicular lymph node enlargement or tenderness. No pallor. Heart - S1S2 regular in rate and rhythm without murmurs, clicks or rubs. + nonpitting peripheral edema. Radial pulses not assessed due to swelling. Lungs - Unlabored breathing, clear to auscultation bilaterally without wheezes or crackles; no decrease in chest expansion Gastrointestinal - Soft, nontender, nondistended. Unable to palpate any hepatosplenomegaly Skin - No nodules, tophi, psoriasis, erythema, malar rash, telangiectasias, sclerodactyly, digital ulcers Neurological - Gait normal, muscle strength 5/5 in all four extremities Musculoskeletal - Decreased wrist flexion/extension, decrease ankle extension, diffuse swelling of hands and ankles/feet with associated joint tenderness, no tenderness to palpation of spine. No petichiae, nail pitting, clubbing or onycholysis. Rheumatology Results 11/26/17 14:08 11/26/17 14:08 All other labs normal. Consult Discharge Plan - Plan Referrals: Jayla Recio CNP [Primary Care Provider] - Jayla Morocho MD [Family Provider] -
[2017-11-27] MEDS ORDERED: Lidocaine -MPF 1% 5 ML AMPUL INFILT ONE (12:56)
--- NOTE | 2017-11-27 13:36 | Event Note ---
Date of Encounter: 11/27/17 Time of Encounter: 13:35 Pts right axillary region was prepped and draped. The area was preped with betadine. An incision with an 11 blade knife was performed.100 mls of pus was drained from the wound. It was packed with gauze.
[2017-11-27] MEDS ORDERED: methylPREDNISolone 125 MG/2 ML VIAL IVP ONE (13:39)
--- NOTE | 2017-11-27 15:16 | General Surgery Consult Note ---
Date of Encounter: 11/27/17 Time of Encounter: 01:00 Assessment and Plan (1) Abscess Current Visit: Yes Status: Acute Right axillary abscess - I&D by Dr. Ramirez 11/27/17 Plan: Incision and drainage performed today. Approximately 100 cm appearing material was drained. Abscess was packed with gauze. Agree with continuation of antibiotic therapy by primary care team and possibly infectious disease Comfort care and pain management Will reassess and repack wound tomorrow (2) Sepsis Current Visit: Yes Status: Acute Management per primary care team Qualifiers: Sepsis type: sepsis due to unspecified organism Qualified Code(s): A41.9 - Sepsis, unspecified organism (3) DVT prophylaxis Current Visit: Yes Status: Acute Patient is on anticoagulation - Xarelto History of Present Illness Consult date: 11/27/17 (Dr. Ramirez) Reason for consult: other (Right axillary abscess) History of present illness: Patient is a 22-year-old female with recent history of pulmonary embolism admitted for shortness of breath and palpitations. Patient was found to be septic with an approximate 4.5 cm irregular fluid collection in the right axilla , suspicious for abscess. Repeat CTA of the chest did not identify new or residual PE, did identify right axillary fluid collection. Patient reports that she had a biopsy to this area in September for possible psoriasis. This area has been irritated and uncomfortable since that time. Noticing worsening pain, swelling, and erythema in her right axilla over the past week. States that she has Crohn's disease and is on prednisone and mercaptopurine, has also been on multiple antibiotics since her PE 3 weeks ago. Patient endorses shortness of breath with exertion as well as fast heart rate. Has had waxing and waning fevers for past 3 weeks. Notes edema of bilateral upper and lower extremities. States her appetite has been good. Denies nausea, vomiting, abdominal pain, change in bowel habits. Past Med Surg Social Fam HX - Past Medical History Medical history: pulmonary embolus Additional medical history: crohns disease Psychiatric history: anxiety, depression - Social History Smoking Status: Never smoker Smokeless Tobacco Status: No Alcohol use: rarely Drug use: none Medications and Allergies Acetaminophen [Tylenol Arthritis] 650 mg PO Q8H PRN 11/26/17 [History] BuPROPion XL (24 HR) [Wellbutrin XL] 150 mg PO HS 11/26/17 [History] Duloxetine HCl [Cymbalta] 60 mg PO HS 11/26/17 [History] Mercaptopurine [Purinethol] 25 mg PO HS 11/26/17 [History] Rivaroxaban [Xarelto] 15 mg PO BID 11/26/17 [History] predniSONE [PredniSONE] 10 mg PO HS 11/26/17 [History] 3 Allergy/AdvReac Type Severity Reaction Status Date / Time No Known Allergies Allergy Verified 11/26/17 21:58 Review of Systems All systems PM: The remainder of the systems were reviewed and are negative - Constitutional chills, fever(s) - Cardiovascular palpitations, rapid heart rate - Respiratory dyspnea on exertion - Musculoskeletal arthralgias bilateral: foot swelling, hand swelling General Surgery Exam Initial Vital Signs Temp Pulse Resp BP Pulse Ox 98.6 F 121 20 117/74 97 11/26/17 13:35 11/26/17 13:35 11/26/17 13:35 11/26/17 13:35 11/26/17 13:35 - General physical appearance well nourished, no distress, other (Mild pain) - Eyes PERRL, normal ocular movement - ENT atraumatic, normocephalic - Neck trachea midline - Respiratory normal respiratory effort, clear to auscultation - Cardiovascular Cardiovascular exam: Present: tachycardia - Abdomen Abdomen general surgery: Present: bowel sounds present, soft, non tender - Integumentary Integumentary general surgery: Present: warm and dry, other (4.5 cm irregular fluid collection in the right axilla, associated erythema and fluctuance.) - Neurologic Present: CN 2-12 grossly intact - Psychiatric Psychiatric general surgery: Present: A&Ox3, appropriate, speech is normal Exam Initial Vital Signs Temp Pulse Resp BP Pulse Ox 98.6 F 121 20 117/74 97 11/26/17 13:35 11/26/17 13:35 11/26/17 13:35 11/26/17 13:35 11/26/17 13:35 Results - Labs 11/26/17 14:08 11/26/17 14:08 Abnormal lab results RBC 3.60 M/mcL (3.82-4.97) L 11/26/17 14:08 Hgb 10.3 g/dL (11.5-15.4) L 11/26/17 14:08 Hct 31.1 % (35.3-44.9) L 11/26/17 14:08 Plt Count 519 K/mcL (140-400) H 11/26/17 14:08 MPV 8.8 fL (9.4-12.4) L 11/26/17 14:08 Anisocytosis 1+ (Not Present) A 11/26/17 14:08 ESR 59 mm/hr (0-15) H 11/27/17 12:53 Glucose 115 mg/dL (70-105) H 11/26/17 14:08 Creatine Kinase < 10 Units/L (30-223) L 11/26/17 21:06 C-Reactive Protein 138 mg/L (Less than 10) H 11/27/17 12:53 Urine Clarity Cloudy (Clear) A 11/26/17 20:45 Ur Leukocyte Esterase Trace (Negative) H 11/26/17 20:45 Urine Microscopic WBC 5-15 per hpf (0-3) H 11/26/17 20:45 Ur Squamous Epith Cells Many per lpf (None-Few) H 11/26/17 20:45 Urine Bacteria Moderate per hpf (None-Few) H 11/26/17 20:45 Ur Culture Indicated? NO. (NO) A 11/26/17 20:45 All other labs normal. Consult Discharge Plan - Plan Referrals: Jayla Morocho MD [Family Provider] - Jayla Recio CNP [Primary Care Provider] -
--- NOTE | 2017-11-27 15:50 | Event Note ---
Date of Encounter: 11/27/17 Time of Encounter: 12:30 22-year-old female with history of Crohn's disease, PE, and newly diagnosed psoriasis, is admitted for R axillary abscess post punch biopsy and diffuse joint pain/swelling. IV abx, surgery consult for I&D, and IVF given overnight. On exam, she has diffuse joint swelling, warmth, and tenderness on palpation mainly on MCP and MTP joints bilaterally. She was apparently evaluated by adult care manager as an outpatient but does not know the result of her workup. Will get ESR, CRP, RF, CCP, and consult rheumatology for further input. Sinus tach likely due to acute infections +/- systemic inflammatory process -> expect to get better with the treatment as above. Low suspicion for sepsis as she only had 1/4 SIRS criteria on presentation.
[2017-11-27] MEDS ORDERED: traMADol 50 MG TABLET PO PRN (18:12)
[2017-11-27] MEDS ORDERED: BuPROPion XL (24 HR) 150 MG TABLET PO SCH (21:00)
[2017-11-28 07:23] LABS: Basophils % 0.5 %; Eosinophils # 0.1 K/mcL (0.0-0.6); Eosinophils % 1.6 %; Hematocrit 29.5 % (35.3-44.9); Hemoglobin 9.7 g/dL (11.5-15.4); Immature Granulocytes % 2.3 % (0-4); Lymphocytes # 3.2 K/mcL (0.6-4.6); Lymphocytes % 39.3 %; Mean Corpuscular HGB Conc 32.9 g/dL (31.6-35.5); Mean Corpuscular Hemoglobin 28.6 pg (28.0-33.3); Mean Platelet Volume 8.8 fL (9.4-12.4); Monocytes # 0.5 K/mcL (0.0-1.3); Monocytes % 6.1 %; Neutrophils # 4.1 K/mcL (1.6-8.9); Platelet Count 471 K/mcL (140-400); Red Blood Count 3.39 M/mcL (3.82-4.97); Segmented Neutrophils % 50.2 %
[2017-11-28 07:40] LABS: BUN/Creatinine Ratio 8 (6-26); Blood Urea Nitrogen 5 mg/dL (6-20); Calcium 8.4 mg/dL (8.6-10.3); Carbon Dioxide 27 mEq/L (23-29); Chloride 110 mEq/L (98-107); Glucose 96 mg/dL (70-105); Osmolality,Calculated 279 (280-300); Potassium 3.9 mEq/L (3.5-5.1); Sodium 136 mEq/L (136-145); eGFR For Non-African Americans > 60 (> 60)
[2017-11-28 07:49] LABS: Reactive Lymphocytes Present (Not Present)
--- NOTE | 2017-11-28 08:03 | Rheumatology Progress Note ---
<Guy Dean - Last Filed: 11/28/17 11:22> Date of Encounter: 11/28/17 Time of Encounter: 07:56 Rheumatology Assess and Plan (1) Inflammatory arthritis Current Visit: Yes Status: Acute - Tenosynovitis of bilateral hands and lesser extent feet. - Etiology unclear at this time. Differential includes reactive arthritis from viral, drug induced lupus, spondyloarthropathy secondary to IBD, psoriatic arthritis - Sudden onset and nature point to possible reactive nature. - Labs results still pending at this time. RF negative. Elevated ESR and CRP - Reports minimal improvement in symptoms after solu-medrol - ESR and CRP elevated likely reflecting the inflammatory response. Also may be elevated in the setting of infection - Sepsis likely secondary to right axillary abscess s/p I&D. Afebrile today Plan - Follow up with pending labs - Recommend discharge per primary team with prednisone 40mg daily x1 week, followed by 20mg daily x1 week - Follow up with PCP within 7-10 days. 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 Arnold (2) On prednisone therapy Current Visit: Yes Status: Acute (3) Sepsis Current Visit: Yes Status: Resolved - Tachycardic on exam. Afebrile since today, no WBC, no increased RR. - Likely secondary to axillary abscess - Improving. - Management per primary team Qualifiers: Sepsis type: sepsis due to unspecified organism Qualified Code(s): A41.9 - Sepsis, unspecified organism - Subjective Interval history: Patient was seen and examined at bedside this morning. She reports that her joint pain and swelling are unchanged. Reports swelling in the MCP, PIP, lateral foot bilaterally. She denies numbness, tingling but reports weakness secondary to the swelling. She has had intermittent fevers and chills for the past 3 weeks. Does have swelling episodes approximately every 3 months but normally goes away on its own. This episode has lasted several days. States she sometimes uses tylenol for pain relief. Exam Vital Signs, Last 4 Hours Temp Pulse Resp BP Pulse Ox 11/28/17 06:17 97.9 F 98 14 105/64 97 11/28/17 04:13 98.4 F 103 14 116/71 98 Exam: Gen.: Vitals noted. No acute distress. AAOx3. Resting comfortably in bed. HEENT: PERRL/EOMI, oropharynx clear, Normocephalic, atraumatic, MMM Cardiac: RRR, no murmur, +S1/S2. Mildly tachycardic Pulmonary: CTA bilaterally, no wheezes, rales or rhonchi, equal chest expansion Abdomen: soft, nontender, BS noted, no guarding, no rebound. MSK: Bilateral swelling of MCP, PIP joints. Limited range of motion for clenching fist due to swelling. Some swelling of lateral foot bilaterally. Non erythematous or warmth. Skin: very minimal area on left leg where scaling rash is nearly healed. Extremities: no BLE edema, nontender calf, no cyanosis or clubbing Neuro: A&Ox3, moves all extremities, no focal deficits Psych: Appropriate mood and behavior Objective Data 11/28/17 07:03 11/28/17 07:03 Immunology Rheumatoid Factor < 10 IU/mL (Less than 14) 11/27/17 12:53 All other labs normal. Consult Discharge Plan - Plan Instructions: Sepsis (DC), Acute Wound Care (DC), Abscess (GEN) Additional Instructions: Daily wound care 1. Remove dressing and packing. Shower with antibacterial soap. 2. Repack with 1/4 inch plain gauze. The packing should just filled the cavity for wicking purposes. 3. Cover with a dry dressing. 4. Tape to secure. May change or reinforce outer dressing daily or as needed for drainage. Referrals: Jerardo Ramirez DO [Partnered Physician] - 12/03/17 10:00 am Jayla Recio CNP [Primary Care Provider] - 12/03/17 5:00 pm Prescriptions: Doxycycline 100 mg PO BID #10 capsule Omeprazole [PriLOSEC] 40 mg PO DAILY #30 cap predniSONE [PredniSONE] 40 mg PO HS #21 tablet <Dominic Dominguez - Last Filed: 11/28/17 11:43> Date of Encounter: 11/28/17 Rheumatology Assess and Plan (1) Inflammatory arthritis Current Visit: Yes Status: Acute (2) On prednisone therapy Current Visit: Yes Status: Acute (3) Sepsis Current Visit: Yes Status: Resolved Qualifiers: Sepsis type: sepsis due to unspecified organism Qualified Code(s): A41.9 - Sepsis, unspecified organism (4) Crohn disease Current Visit: Yes Status: Acute Qualifiers: Gastrointestinal tract location: unspecified location Digestive disease complication type: unspecified complication Qualified Code(s): K50.919 - Crohn 's disease, unspecified, with unspecified complications Exam Vital Signs, Last 4 Hours Temp Pulse Resp BP Pulse Ox 11/28/17 10:31 98.0 F 93 14 107/51 92 Objective Data 11/28/17 07:03 11/28/17 07:03 Immunology Rheumatoid Factor < 10 IU/mL (Less than 14) 11/27/17 12:53 All other labs normal. - Attending Attestation I examined this patient and my medical decision making was reviewed with the resident physician. I agree with the documented findings, disposition and treatment as described with these exceptions. No fevers, tachycardia has resolved. Ankle swelling and pain has improved. Continues to have swelling and discomfort in hands but seems less symptomatic. I am not sure the cause of the inflammatory arthritis; this could be reactive from the infection, medications or possibly a spondyloarthropathy manifestation. Would continue prednisone 40 mg x 1 week, 20 mg x 1 week or to taper quicker if symptoms begin to resolve; she should try to follow-up with Dr. Arnold for evaluation. Will follow-up on results.
--- NOTE | 2017-11-28 08:17 | General Surgery Progress Note ---
Date of Encounter: 11/28/17 Time of Encounter: 08:00 - Assessment and Plan (1) Abscess Current Visit: Yes Status: Acute Daily wound care. See DC plan for further details. No cultures were obtained d /t she has been on ATBX for a period of time. Antibiotics per primary team. Surgery will sign off at this time. Thank you for allowing us to participate in Ms. Al's care. Subjective Patient reports: no new complaints, feels better, pain is less, voiding w/o difficulty, afebrile Objective Vital Signs - Last 8 Hours Temp Pulse Resp BP Pulse Ox 11/28/17 06:17 97.9 F 98 14 105/64 97 11/28/17 04:13 98.4 F 103 14 116/71 98 Intake and Output 11/27/17 11/28/17 11/28/17 23:59 07:59 15:59 Intake Total 480 / 480 0 / 0 Output Total 600 / 600 300 / 300 Balance -120 / -120 -300 / -300 Intake: Oral 480 / 480 0 / 0 Output: Urine 600 / 600 300 / 300 Other: Meal Dinner Percent of Meal Consumed 100% # Bowel Movements 0 - General physical appearance well developed, well nourished, no distress, no pain - ENT atraumatic, normocephalic - Neck Neck exam: trachea midline - Respiratory normal expansion, normal respiratory effort, clear to auscultation - Cardiovascular Cardiovascular exam: Present: RRR - Abdomen Abdomen: Present: bowel sounds present, soft, non tender Hernia: none - Integumentary other (Right axillary site with moderate cloudy drainage and improving cellulitis.) - Labs 11/28/17 07:03 11/28/17 07:03 Diabetes panel 11/28/17 Range/Units 07:03 Sodium 136 (136-145) mEq/L Potassium 3.9 (3.5-5.1) mEq/L Chloride 110 H (98-107) mEq/L Carbon Dioxide 27 (23-29) mEq/L BUN 5 L (6-20) mg/dL Creatinine 0.63 (0.60-1.20) mg/dL Glucose 96 (70-105) mg/dL Calcium 8.4 L (8.6-10.3) mg/dL Calcium panel 11/28/17 Range/Units 07:03 Calcium 8.4 L (8.6-10.3) mg/dL Pituitary panel 11/28/17 Range/Units 07:03 Sodium 136 (136-145) mEq/L Potassium 3.9 (3.5-5.1) mEq/L Chloride 110 H (98-107) mEq/L Carbon Dioxide 27 (23-29) mEq/L BUN 5 L (6-20) mg/dL Creatinine 0.63 (0.60-1.20) mg/dL Glucose 96 (70-105) mg/dL Calcium 8.4 L (8.6-10.3) mg/dL Adrenal panel 11/28/17 Range/Units 07:03 Sodium 136 (136-145) mEq/L Potassium 3.9 (3.5-5.1) mEq/L Chloride 110 H (98-107) mEq/L Carbon Dioxide 27 (23-29) mEq/L BUN 5 L (6-20) mg/dL Creatinine 0.63 (0.60-1.20) mg/dL Glucose 96 (70-105) mg/dL Calcium 8.4 L (8.6-10.3) mg/dL Consult Discharge Plan - Plan Instructions: Abscess (GEN), Acute Wound Care (DC) Additional Instructions: Daily wound care 1. Remove dressing and packing. Shower with antibacterial soap. 2. Repack with 1/4 inch plain gauze. The packing should just filled the cavity for wicking purposes. 3. Cover with a dry dressing. 4. Tape to secure. May change or reinforce outer dressing daily or as needed for drainage. Referrals: Jayla Recio CNP [Primary Care Provider] - Jerardo Ramirez DO [Partnered Physician] - 12/03/17 10:00 am
[2017-11-28] MEDS: *HR* Rivaroxaban 15 MG TABLET PO SCH (09:36)
[2017-11-28] MEDS ORDERED: predniSONE 20 MG TABLET PO SCH (10:15)
--- NOTE | 2017-11-28 10:56 | Discharge Summary ---
- NOTES TO OUTPATIENT PROVIDER Notes to Outpatient Provider: Patient with history of Crohn's disease and recently diagnosed psoriasis by punch biopsy was admitted for concern of sepsis secondary to right axillary abscess that developed after the biopsy. She also complained of diffuse arthralgia for which she was seeing outpatient roof mechanic for. Had I&D done by surgery, culture not sent as she had already been started on abx. Blood culture -ve, tachycardia resolved. Abx switched to PO doxycycline (urine test -ve) to complete a 7 day course. He was also evaluated by dermatology and was noted to have elevated ESR /CRP with negative rheumatoid factor. She is empirically started on oral steroid. HUAN, complements, and other serologies were pending at the time of discharge and the results will be relayed to her outpatient roof mechanic. Since she will be on steroids and xarelto, she was also given prophylactic PPI which can be discontinued once she is off steroid. Orders not resulted at time of discharge: Pending orders 11/27/17 12:53 CCP IgG Routine 11/27/17 13:28 HUAN IgG HIGINIO rflx IFA Routine Anti-DNA DS, IgG with reflex Routine Complement Component 3 Routine Complement Component 4 Routine Histone Antibody, IgG Routine Parvovirus B19, IgM Routine Date of Encounter: 11/29/17 Time of Encounter: 09:00 - Discharge Diagnosis (1) Dyspnea on exertion Priority: Secondary Status: Acute (2) Cellulitis Priority: Secondary Status: Acute Qualifiers: Site of cellulitis: extremity Site of cellulitis of extremity: axilla Laterality: right Qualified Code(s): L03.111 - Cellulitis of right axilla (3) Abscess Priority: Secondary Status: Acute (4) Sepsis Priority: Primary Status: Resolved Qualifiers: Sepsis type: sepsis due to unspecified organism Qualified Code(s): A41.9 - Sepsis, unspecified organism (5) Crohn disease Priority: Secondary Status: Acute Qualifiers: Gastrointestinal tract location: unspecified location Digestive disease complication type: unspecified complication Qualified Code(s): K50.919 - Crohn 's disease, unspecified, with unspecified complications (6) Depression Priority: Secondary Status: Acute Qualifiers: Depression Type: unspecified Qualified Code(s): F32.9 - Major depressive disorder, single episode, unspecified (7) History of pulmonary embolism Priority: Secondary Status: Acute (8) DVT prophylaxis Priority: Secondary Status: Acute (9) Inflammatory arthritis Priority: Secondary Status: Acute Hospital course: Ms. Al is a 22 year old female with history of Crohn's disease and recently diagnosed psoriasis by punch biopsy was admitted for concern of sepsis secondary to right axillary abscess that developed after the biopsy. Temp 101.1 and tachycardic satisfying 2/4 SIRS criteria. She also complained of diffuse arthralgia for which she was seeing outpatient roof mechanic for. Had I&D done by surgery, culture not sent as she had already been started on abx. Blood culture -ve, tachycardia resolved. Abx switched to PO doxycycline (urine test -ve) to complete a 7 day course. He was also evaluated by dermatology and was noted to have elevated ESR/CRP with negative rheumatoid factor. She is empirically started on oral steroid. HUAN, complements, and other serologies were pending at the time of discharge and the results will be relayed to her outpatient roof mechanic. Since she will be on steroids and xarelto, she was also given prophylactic PPI which can be discontinued once she is off steroid. Discharge discussed with: patient, family, nurse - Time Spent with Patient Total time spent providing and/or coordinating discharge services: Greater than 30 minutes - Discharge Medications Prescriptions: Doxycycline 100 mg PO BID #10 capsule Omeprazole [PriLOSEC] 40 mg PO DAILY #30 cap predniSONE [PredniSONE] 40 mg PO HS #21 tablet Home Medications: Acetaminophen [Tylenol Arthritis] 650 mg PO Q8H PRN 11/26/17 [History] BuPROPion XL (24 HR) [Wellbutrin Xl] 150 mg PO HS 11/26/17 [History] Duloxetine HCl [Cymbalta] 60 mg PO HS 11/26/17 [History] Mercaptopurine [Purinethol] 25 mg PO HS 11/26/17 [History] Rivaroxaban [Xarelto] 15 mg PO BID 11/26/17 [History] Doxycycline 100 mg PO BID #10 capsule 11/28/17 [Rx] Omeprazole [PriLOSEC] 40 mg PO DAILY #30 cap 11/28/17 [Rx] predniSONE [PredniSONE] 40 mg PO HS #21 tablet 11/28/17 [Rx] Allergies/Adverse Reactions: 3 Allergy/AdvReac Type Severity Reaction Status Date / Time No Known Allergies Allergy Verified 11/26/17 21:58 Date of admission: 11/26/17 22:52 Primary care physician: Jayla Recio CNP Consults: 11/27/17 12:10 Consult to Surgery [CONS] Routine Consulting Provider: Surgery [facility] Reason for Consult: R axillary abscess post skin biopsy Call Completed: Yes 11/27/17 12:12 Consult to Rheumatology [CONS] Routine Consulting Provider: Dominic Dominguez Reason for Consult: diffuse joint pain and swelling, more so on MCP and MTP joints bilaterally. Family history of psoriasis and she was recently diagnosed with psoriasis on skin bx (no records available) Call Completed: Yes - Constitutional Vitals: Temp Pulse Resp BP Pulse Ox 98.0 F 93 14 107/51 92 11/28/17 10:31 11/28/17 10:31 11/28/17 10:31 11/28/17 10:31 11/28/17 10:31 General appearance: Present: A&O X 3, pleasant, no acute distress Exam: Const: not in distress Cardio: normal rate and rhythm, no murmur Respiratory: Clear to auscultation, equal breath sounds bilaterally Musculo: Slightly improved swelling and range of motion over MCP and MTP joints bilaterally GI/Abdomen: Soft, non tender, non distended SKin: R axillary dressing dry and intact - Patient Status Disposition: Home, Self-Care Condition: Fair Overall status at discharge: patient is progressing back to baseline - Discharge Instructions Instructions: Sepsis (DC), Acute Wound Care (DC), Abscess (GEN) Follow Up With: Jerardo Ramirez DO [Partnered Physician] - 12/03/17 10:00 am Jayla Recio CNP [Primary Care Provider] - 12/03/17 5:00 pm Additional Instructions: Daily wound care 1. Remove dressing and packing. Shower with antibacterial soap. 2. Repack with 1/4 inch plain gauze. The packing should just filled the cavity for wicking purposes. 3. Cover with a dry dressing. 4. Tape to secure. May change or reinforce outer dressing daily or as needed for drainage. - Diet and Activity Activity: resume usual activities as tolerated Diet: advance to your usual diet
[2017-11-28] MEDS: Cefepime HCl 2,000 MG in Water for inj. (sterile) 20 ML 20 ML IVP SCH (12:40)
[2017-11-28 13:58] VITALS: BP 107/52
[2017-11-28] MEDS ORDERED: Aminoglycoside Consult 1 EACH MC ONE (16:38)
[2017-11-29 08:14] LABS: ANA IgG by ELISA DETECTED (None Detected); Parvovirus B19, IgM 0.23 IV (<=0.89)
[2017-11-29 15:35] LABS: Complement Component 3 151 mg/dL (88-201)
[2017-11-29 15:36] LABS: Complement Component 4 22 mg/dL (10-40)
--- NOTE | 2017-12-02 13:42 | Electrocardiograph Report ---
[place] [id number] Test Date: 2017-11-27 Pat Name: Rita Al Department: 115 Room: 3A42 Gender: F [employer] Computer Consultant: : 1995 Requested By: Gt Fabian Order Number: [id number] Reading MD: Juan F Chino Measurements Intervals [place] Rate: 120 P: 14 RI: 140 QRS: 22 QRSD: 86 T: 29 QT: 305 QTc: 376 Interpretive Statements SINUS TACHYCARDIA POSSIBLE RIGHT VENTRICULAR CONDUCTION DELAY Electronically Signed On 12-02-2017 13:40:55 EDT by Juan F Chino
[2017-12-03 11:44] LABS: ANA IgG IFA Titer >1:2560 (<1:80)
== END 2017-11-28 16:39 | disposition home or self-care (01) ==
LOC: EMEROOARM 13:27 → 3ANU 13:27 → SUATTDRO 22:52 → 3ANU 23:24
PROVIDERS: ADMIT Family Medicine; ATTEND Internal Medicine